=== PATIENT | male | born 1955 | race Native Hawaiian/Other Pacific Islander ===

== ENCOUNTER 2017-06-25 10:35 | Inpatient (IN) | payer OTHER ==
[2017-06-25 13:41] VITALS: BMI 22.3
--- NOTE | 2017-06-25 17:05 | HP ---
CIWA Score - CIWA Score Nausea/Vomitin-Mild Nausea/No Vomiting Muscle Tremors: 4-Moderate,w/Arms Extend Anxiety: 5 Agitation: 4-Moderately Restless Paroxysmal Sweats: 1-Minimal Palms Moist Orientation: 0-Oriented Tacttile Disturbances: 1-Very Mild Itch/Numbness Auditory Disturbances: 0-None Visual Disturbances: 0-None Headache: 3-Moderate CIWA-Ar Total Score: 19 Admission ROS S - HPI Chief Complaint: withdrawal sx Allergies/Adverse Reactions: Allergies Allergy/AdvReac Type Severity Reaction Status Date / Time No Known Drug Allergies Allergy Verified 06/25/17 14:04 pork Allergy Intermediate Vomiting Uncoded 06/25/17 14:04 History of Present Illness: 61 years old male with long history of xanax klonopin nicotine dependence has positive ppd cane for ambulation methadone maintenance 80 mg po daily and depression is admitted to detox Exam Limitations: No Limitations - Ebola screening Have you traveled outside of the country in the last 21 days: No Have you had contact with anyone from an Ebola affected area: No Have you been sick,other than usual withdrawal symptoms: No Do you have a fever: No - Review of Systems Constitutional: Loss of Appetite, Changes in sleep, Unintentional Wgt. Loss, Unexplained wgt Loss EENT: reports: Blurred Vision (eye glasses), Dental Problems (upper and lower) Respiratory: reports: SOB with Exertion Cardiac: reports: No Symptoms Reported GI: reports: Nausea, Poor Fluid Intake, Indigestion, Abdominal cramping : reports: No Symptoms Reported Musculoskeletal: reports: Back Pain (x 6+ months treated by pain management), Muscle Weakness (both legs) Integumentary: reports: No Symptoms Reported Endocrine: reports: No Symptoms Reported Hematology: reports: No Symptoms Reported Psychiatric: reports: Judgement Intact, Orientated x3, Anxious, Depressed Other Systems: Reviewed and Negative Patient History - Patient Medical History Hx Anemia: No Hx Asthma: No Hx Chronic Obstructive Pulmonary Disease (COPD): No Hx Cancer: No Hx Cardiac Disorders: No Hx Congestive Heart Failure: No Hx Hypertension: No Hx Hypercholesterolemia: No Hx Pacemaker: No HX Cerebrovascular Accident: No Hx Seizures: Yes (08/2016 xanax withdrawal related ) Hx Dementia: No Hx Diabetes: No Hx Gastrointestinal Disorders: No Hx Liver Disease: No Hx Genitourinary Disorders: No Hx Sexually Transmitted Disorders: No Hx Renal Disease (ESRD): No Hx Thyroid Disease: No Hx Human Immunodeficiency Virus (HIV): No Hx Hepatitis C: Yes Hx Depression: Yes Hx Suicide Attempt: No Hx Bipolar Disorder: No Hx Schizophrenia: No - Patient Surgical History Past Surgical History: Yes Hx Orthopedic Surgery: Yes (RT knee-1972/lower back sx-2014) Anesthesia Reaction: No - PPD History Previous Implant?: Yes (take home bottle) Documented Results: Positive w/o proof Implanted On Prior [facility] Admission?: No PPD to be Administered?: No - Smoking Cessation Smoking history: Current every day smoker Have you smoked in the past 12 months: Yes Aproximately how many cigarettes per day: 20 Cigars Per Day: 0 Hx Chewing Tobacco Use: No Initiated information on smoking cessation: Yes 'Breaking Loose' booklet given: 06/25/17 - Substance & Tx. History Hx Alcohol Use: No Hx Substance Use: Yes Substance Use Type: Cocaine, Tranquilizers Hx Substance Use Treatment: Yes (12/2016 [facility]) - Substances Abused Heroin Route: Injection Frequency: Daily Amount used: 10-12 bags Age of first use: 16 Date of Last Use: 06/25/17 Benzodiazepine (Klonopin) Route: Oral Frequency: Daily Amount used: 8 mg Age of first use: 59 Date of Last Use: 06/24/17 Alprazolam (Xanax) Route: Oral Frequency: Daily Amount used: 4 mg Age of first use: 60 Date of Last Use: 06/24/17 Cocaine Route: Injection Frequency: Daily Amount used: $40-50 Age of first use: 14 Date of Last Use: 06/25/17 Family Disease History - Family Disease History Family Disease History: Heart Disease: Mother (), Sister, Other: Father (/fell), Mother, Brother (/killed) Admission Physical Exam [facility] - Vital Signs Vital Signs: Vital Signs - 24 hr 06/25/17 13:33 Temperature 96.5 F L Pulse Rate 64 Respiratory 20 Rate Blood Pressure 160/71 - Physical General Appearance: Yes: Appropriately Dressed, Moderate Distress, Thin, Tremorous, Irritable, Sweating, Anxious HEENTM: Yes: Hearing grossly Normal, Normal ENT Inspection, Normocephalic, Normal Voice Respiratory: Yes: Chest Non-Tender, Lungs Clear, Normal Breath Sounds, No Respiratory Distress, No Accessory Muscle Use Neck: Yes: Supple, Trachea in good position Breast: Yes: Breasts Symetrical Cardiology: Yes: Regular Rhythm, S1, S2, Bradycardia Abdominal: Yes: Normal Bowel Sounds, Non Tender, Soft Genitourinary: Yes: Within Normal Limits Back: Yes: Normal Inspection Musculoskeletal: Yes: full range of Motion, Gait Steady (cane), Back pain, Joint swelling (lumbar x "years"), Muscle weakness (both legs) Extremities: Yes: Non-Tender, Tremors Neurological: Yes: Fully Oriented, Alert, Normal Response, Depressed Affect Integumentary: Yes: Warm, Track [place] (arms + legs) Lymphatic: Yes: Within Normal Limits - Diagnostic (1) Sedative, hypnotic or anxiolytic dependence with withdrawal, uncomplicated Current Visit: Yes Status: Acute (2) Nicotine dependence Current Visit: Yes Status: Acute Qualifiers: Nicotine product type: cigarettes Substance use status: in withdrawal Qualified Code(s): F17.213 - Nicotine dependence, cigarettes, with withdrawal (3) Use of cane as ambulatory aid Current Visit: Yes Status: Chronic (4) Positive PPD, treated Current Visit: Yes Status: Resolved (5) Methadone maintenance therapy patient Current Visit: Yes Status: Chronic Comment: 80 mg verified last dose (6) Weight loss Current Visit: Yes Status: Acute (7) GERD (gastroesophageal reflux disease) Current Visit: Yes Status: Chronic Qualifiers: Esophagitis presence: without esophagitis Qualified Code(s): K21.9 - Gastro -esophageal reflux disease without esophagitis (8) Hepatitis C Current Visit: Yes Status: Chronic Qualifiers: Viral hepatitis chronicity: carrier Qualified Code(s): B18.2 - Chronic viral hepatitis C Comment: patient agrees to discuss treatment with primary care dr. ocampo Cleared for Admission [facility] - Detox or Rehab [facility] Level of Care: Medically Managed Detox Regimen/Protocol: Valium [facility] Breath Alcohol Content Breath Alcohol Content: 0 Urine Drug Screen - Results Drug Screen Negative: No Urine Drug Screen Results: FREDERIC-Cocaine, OPI-Opiates, BZO-Benzodiazepines, MTD- Methadone
[2017-06-25] MEDS ORDERED: MENTHOL/PHENOL 1 EACH UD MM PRN (17:13)
[2017-06-25] MEDS ORDERED: MAGNESIUM CITRATE 300 ML BOTTLE PO PRN (17:13)
[2017-06-25] MEDS ORDERED: NICOTINE POLACRILEX 4 MG GUM BC PRN (17:13)
[2017-06-25] MEDS ORDERED: P-EPHED 60MG/TRIPROLIDI 2.5MG TABLET PO PRN (17:13)
[2017-06-25] MEDS ORDERED: MAG HYDROX/AL HYDROX/SIMETH 30 ML UNIT-DOSE CUP PO PRN (17:13)
[2017-06-25] MEDS ORDERED: MAGNESIUM HYDROX 2400MG/30ML ORAL SUSPENSION 30 ML CUP PO PRN (17:13)
[2017-06-25] MEDS ORDERED: ACETAMINOPHEN 325 MG TABLET (FP) PO PRN (17:13)
[2017-06-25] MEDS ORDERED: guaiFENesin/D-METHORPHAN HB 10 ML UNIT-DOSE CUPS PO PRN (17:13)
[2017-06-25] MEDS ORDERED: diazePAM 5 MG TABLET PO ONE (18:00)
[2017-06-25 20:42] LABS: URINE APPEARANCE CLEAR; URINE BILIRUBIN NEGATIVE (NEGATIVE); URINE BLOOD NEGATIVE (NEGATIVE); URINE COLOR YELLOW; URINE GLUCOSE (UA) NEGATIVE (NEGATIVE); URINE KETONE NEGATIVE (NEGATIVE); URINE LEUK ESTERASE NEGATIVE (NEGATIVE); URINE NITRITE NEGATIVE (NEGATIVE); URINE PROTEIN NEGATIVE (NEGATIVE); URINE UROBILINOGEN NEGATIVE mg/dL (0.2-1.0)
[2017-06-25] MEDS: THIAMINE HCL 100 MG TABLET (FP) PO SCH (22:15)
[2017-06-25] MEDS: RANITIDINE HCL 150 MG TABLET (FP) PO SCH (22:15)
[2017-06-25] MEDS: diazePAM 5 MG TABLET PO SCH (22:15)
[2017-06-25] MEDS: NAPROXEN 500 MG TABLET (FP) PO SCH (22:15)
[2017-06-26] MEDS: METHADONE HCL 40 MG DISPERSABLE TABLET PO SCH (05:44)
[2017-06-26] MEDS: diazePAM 5 MG TABLET PO SCH ×3 (05:45→22:12)
[2017-06-26] MEDS: diazePAM 5 MG TABLET PO PRN ×3 (09:02→19:03)
[2017-06-26 09:48] LABS: HEMATOCRIT 35.5 % (35.4-49); HEMOGLOBIN 11.1 GM/dL (11.7-16.9); MCH 25.2 pg (25.7-33.7); MCHC 31.3 g/dl (32.0-35.9); MEAN CELL VOLUME 80.5 fl (80-96); MEAN PLT VOLUME 9.8 fl (7.5-11.1); PLATELET COUNT 145 K/MM3 (134-434); RBC 4.41 M/mm3 (4.00-5.60); RDW 15.4 % (11.9-15.9); WHITE BLOOD COUNT 5.9 K/mm3 (4.0-10.0)
[2017-06-26 10:08] LABS: ALBUMIN 3.5 g/dl (3.4-5.0); ANION GAP 7 (8-16); BLOOD UREA NITROGEN 22 mg/dL (7-18); CALCIUM 8.1 mg/dL (8.5-10.1); CHLORIDE 108 mmol/L (98-107); CO2 28 mmol/L (21-32); CREATININE 1.4 mg/dL (0.7-1.3); GLUCOSE,RANDOM 100 mg/dL (74-106); SGOT/AST 30 U/L (15-37); SGPT/ALT 26 U/L (12-78); SODIUM 143 mmol/L (136-145)
[2017-06-26 10:11] LABS: ALK PHOS 60 U/L (45-117); BILIRUBIN,TOTAL 0.4 mg/dL (0.2-1.0)
[2017-06-26] MEDS: NICOTINE 21 MG/24 HOURS TOPICAL PATCH TD SCH (10:17)
[2017-06-26] MEDS: PRENATAL VITAMINS W/ FOLIC ACID TABLET (FP) PO SCH (10:18)
[2017-06-26] MEDS: NAPROXEN 500 MG TABLET (FP) PO SCH ×2 (10:18→22:40)
[2017-06-26] MEDS: RANITIDINE HCL 150 MG TABLET (FP) PO SCH ×2 (10:18→22:40)
--- NOTE | 2017-06-26 13:03 | PN ---
[facility] CIWA - CIWA Score Nausea/Vomitin-No Nausea/No Vomiting Muscle Tremors: 5 Anxiety: 5 Agitation: 4-Moderately Restless Paroxysmal Sweats: 1-Minimal Palms Moist Orientation: 0-Oriented Tacttile Disturbances: 3-Moderate Itch/Numb/Burn Auditory Disturbances: 0-None Visual Disturbances: 0-None Headache: 0-None Present CIWA-Ar Total Score: 18 BHS Progress Note (SOAP) Subjective: PT C/O ANXIETY, HOT/COLD CHILLS, SWEATS, GOOSE BUMPS, NAUSEA,DIARRHEA, INTERMITTENT SLEEP. Objective: 06/26/17 13:02 Vital Signs Temperature 96.2 F L 06/26/17 09:39 Pulse Rate 71 06/26/17 09:39 Respiratory Rate 18 06/26/17 09:39 Blood Pressure 138/76 06/26/17 09:39 O2 Sat by Pulse Oximetry (%) Laboratory Last Values WBC 5.9 K/mm3 (4.0-10.0) 06/26/17 05:45 RBC 4.41 M/mm3 (4.00-5.60) 06/26/17 05:45 Hgb 11.1 GM/dL (11.7-16.9) L 06/26/17 05:45 Hct 35.5 % (35.4-49) 06/26/17 05:45 MCV 80.5 fl (80-96) 06/26/17 05:45 MCH 25.2 pg (25.7-33.7) L 06/26/17 05:45 MCHC 31.3 g/dl (32.0-35.9) L 06/26/17 05:45 RDW 15.4 % (11.9-15.9) 06/26/17 05:45 Plt Count 145 K/MM3 (134-434) 06/26/17 05:45 MPV 9.8 fl (7.5-11.1) 06/26/17 05:45 Sodium 143 mmol/L (136-145) 06/26/17 05:45 Potassium 4.0 mmol/L (3.5-5.1) 06/26/17 05:45 Chloride 108 mmol/L (98-107) H 06/26/17 05:45 Carbon Dioxide 28 mmol/L (21-32) 06/26/17 05:45 Anion Gap 7 (8-16) L 06/26/17 05:45 BUN 22 mg/dL (7-18) H 06/26/17 05:45 Creatinine 1.4 mg/dL (0.7-1.3) H 06/26/17 05:45 Creat Clearance w eGFR 51.18 (>60) 06/26/17 05:45 Random Glucose 100 mg/dL (74-106) 06/26/17 05:45 Calcium 8.1 mg/dL (8.5-10.1) L 06/26/17 05:45 Total Bilirubin 0.4 mg/dL (0.2-1.0) 06/26/17 05:45 AST 30 U/L (15-37) 06/26/17 05:45 ALT 26 U/L (12-78) 06/26/17 05:45 Alkaline Phosphatase 60 U/L (45-117) 06/26/17 05:45 Total Protein 7.0 g/dl (6.4-8.2) 06/26/17 05:45 Albumin 3.5 g/dl (3.4-5.0) 06/26/17 05:45 Urine Color Yellow 06/25/17 19:00 Urine Appearance Clear 06/25/17 19:00 Urine pH 5.0 (5.0-8.0) 06/25/17 19:00 Ur Specific [place] 1.025 (1.001-1.035) 06/25/17 19:00 Urine Protein Negative (NEGATIVE) 06/25/17 19:00 Urine Glucose (UA) Negative (NEGATIVE) 06/25/17 19:00 Urine Ketones Negative (NEGATIVE) 06/25/17 19:00 Urine Blood Negative (NEGATIVE) 06/25/17 19:00 Urine Nitrite Negative (NEGATIVE) 06/25/17 19:00 Urine Bilirubin Negative (NEGATIVE) 06/25/17 19:00 Urine Urobilinogen Negative mg/dL (0.2-1.0) 06/25/17 19:00 Ur Leukocyte Esterase Negative (NEGATIVE) 06/25/17 19:00 RPR Titer Nonreactive (NONREACTIVE) 06/26/17 05:45 HIV 1&2 Antibody Screen Negative 06/25/17 05:45 HIV P24 Antigen Negative 06/25/17 05:45 Assessment: 06/26/17 13:03 WITHDRAWAL SX Plan: CONTINUE DETOX
--- NOTE | 2017-06-26 15:15 | EKG ---
Test Reason : Blood Pressure : / mmHG Vent. Rate : 064 BPM Atrial Rate : 064 BPM P-R Int : 152 ms QRS Dur : 086 ms QT Int : 408 ms P-R-T Axes : 070 062 060 degrees QTc Int : 420 ms NORMAL SINUS RHYTHM POSSIBLE LEFT ATRIAL ENLARGEMENT BORDERLINE ECG Confirmed by MD ESTEBAN, BEATA ([id number]) on 06/26/2017 3:14:53 PM Referred By: Confirmed By:BEATA ORELLANA MD
--- NOTE | 2017-06-26 15:16 | EKG ---
Test Reason : Blood Pressure : / mmHG Vent. Rate : 054 BPM Atrial Rate : 054 BPM P-R Int : 164 ms QRS Dur : 086 ms QT Int : 438 ms P-R-T Axes : 074 079 069 degrees QTc Int : 415 ms SINUS BRADYCARDIA WITH SINUS ARRHYTHMIA OTHERWISE NORMAL ECG Confirmed by MD ESTEBAN, BEATA ([id number]) on 06/26/2017 3:16:08 PM Referred By: Confirmed By:BEATA ORELLANA MD
--- NOTE | 2017-06-26 15:33 | CONSULT ---
[facility] Psychiatric Consult - Data Date of interview: 06/26/17 Admission source: [facility] Identifying data: Pt. is a 61 year old male, , father of five, and is on disability. This is patient's first admission to [facility]. Pt. admitted to for cocaine, benzodiazepine, and opiate withdrawal. Substance Abuse History: Following information confirmed with Mr. Yung: - Smoking Cessation. Smoking history: Current every day smoker. Have you smoked in the past 12 months: Yes. Aproximately how many cigarettes per day: 20. Cigars Per Day: 0. Hx Chewing Tobacco Use: No. Initiated information on smoking cessation: Yes. 'Breaking Loose' booklet given: 06/25/17. - Substance & Tx. History. Hx Alcohol Use: No. Hx Substance Use: Yes. Substance Use Type : Cocaine, Tranquilizers. Hx Substance Use Treatment: Yes (12/2016 [facility]). - Substances Abused. Heroin. Route: Injection. Frequency: Daily. Amount used: 10-12 bags. Age of first use: 16. Date of Last Use: 06/25/17. Benzodiazepine (Klonopin). Route: Oral. Frequency: Daily. Amount used: 8 mg. Age of first use: 59. Date of Last Use: 06/24/17. Alprazolam (Xanax). Route: Oral. Frequency: Daily. Amount used: 4 mg. Age of first use: 60. Date of Last Use: 06/24/17. Cocaine. Route: Injection. Frequency: Daily. Amount used: $40-50. Age of first use: 14. Date of Last Use: 06/25/17 Medical History: Seizures (last seizure was on 08/2016) and Hep C Psychiatric History: Pt. denies h/o psychiatric hospitalizations and suicide attempts. Pt reports h/o OPC 2 years ago, was diagnosed with PTSD and was prescribed zoloft. Pt. no longer has an OPC. States his current PCP prescribes him trazodone 50mg qhs but no longer has additional medications. Last took trazodone 2 weeks ago. Pt. requesting to restart trazodone 50mg qhs. Physical/Sexual Abuse/Trauma History: Denies. Mental Status Exam - Mental Status Exam Alert and Oriented to: Time, Place, Person Cognitive Function: Good Patient Appearance: Well Groomed Mood: Hopeful Affect: Normal Range Patient Behavior: Cooperative Speech Pattern: Appropriate Voice Loudness: Normal Thought Process: Goal Oriented Thought Disorder: Not Present Hallucinations: Denies Suicidal Ideation: Denies Homicidal Ideation: Denies Insight/Judgement: Poor Sleep: Poorly Appetite: Poor Muscle strength/Tone: Mild Hypertonicity Gait/Station: Other (Pt. walks with a cane.) Psychiatric Findings - Problem List ([place] 1, 2,3) (1) Sedative, hypnotic or anxiolytic dependence with withdrawal, uncomplicated Current Visit: Yes Status: Acute (2) Opiate dependence Current Visit: Yes Status: Acute (3) Cocaine dependence Current Visit: Yes Status: Acute (4) Insomnia Current Visit: Yes Status: Acute (5) Nicotine dependence Current Visit: Yes Status: Chronic Qualifiers: Nicotine product type: cigarettes Substance use status: in withdrawal Qualified Code(s): F17.213 - Nicotine dependence, cigarettes, with withdrawal - Initial Treatment Plan Initial Treatment Plan: Psychoeducation provided. Detoxification in progress. Trazodone 50mg qhs ordered for insomnia. Benefits and side effects (priapism) discussed. Verbal consent given. Will continue to monitor.
[2017-06-26] MEDS: LOPERAMIDE HCL 2 MG CAPSULE PO PRN (19:38)
[2017-06-26] MEDS: THIAMINE HCL 100 MG TABLET (FP) PO SCH (22:11)
[2017-06-26] MEDS: traZODone HCL 50 MG TABLET (FP) PO SCH (22:12)
[2017-06-27] MEDS: METHADONE HCL 40 MG DISPERSABLE TABLET PO SCH (05:39)
[2017-06-27] MEDS: NICOTINE 21 MG/24 HOURS TOPICAL PATCH TD SCH (10:09)
[2017-06-27] MEDS: RANITIDINE HCL 150 MG TABLET (FP) PO SCH ×2 (10:09→22:32)
[2017-06-27] MEDS: NAPROXEN 500 MG TABLET (FP) PO SCH ×2 (10:09→22:32)
[2017-06-27] MEDS: diazePAM 5 MG TABLET PO SCH ×2 (10:09→22:32)
[2017-06-27] MEDS: PRENATAL VITAMINS W/ FOLIC ACID TABLET (FP) PO SCH (10:09)
[2017-06-27] MEDS: TOLNAFTATE 1% CREAM 15 GM TUBE TP SCH ×2 (14:09→22:35)
--- NOTE | 2017-06-27 15:06 | PN ---
S CIWA - CIWA Score Nausea/Vomitin Muscle Tremors: None Anxiety: 3 Agitation: 3 Paroxysmal Sweats: 3 Orientation: 2-Disoriented Date<2 days Tacttile Disturbances: 2-Mild Itch/Numbness/Burn Auditory Disturbances: 0-None Visual Disturbances: 0-None Headache: 0-None Present CIWA-Ar Total Score: 18 BHS Progress Note (SOAP) Subjective: Sweating, Chills, Vomiting, Diarrhea, Body Aches. Objective: PT. A & O X (UNCERTAIN ABOUT CURRENT DAY / DATE), OBSERVED AMBULATING ON UNIT WITH ASSISTANCE OF A CANE. NO ACUTE DISTRESS. 06/27/17 15:03 Vital Signs Temperature 98.4 F 06/27/17 13:17 Pulse Rate 83 06/27/17 13:17 Respiratory Rate 16 06/27/17 13:17 Blood Pressure 98/65 06/27/17 13:17 O2 Sat by Pulse Oximetry (%) Laboratory Tests 06/25/17 06/25/17 06/26/17 05:45 19:00 05:45 WBC 5.9 RBC 4.41 Hgb 11.1 L Hct 35.5 MCV 80.5 MCH 25.2 L MCHC 31.3 L RDW 15.4 Plt Count 145 MPV 9.8 Sodium Potassium Chloride Carbon Dioxide Anion Gap BUN Creatinine Creat Clearance w eGFR Random Glucose Calcium Total Bilirubin AST ALT Alkaline Phosphatase Total Protein Albumin Urine Color Yellow Urine Appearance Clear Urine pH 5.0 Ur Specific [place] 1.025 Urine Protein Negative Urine Glucose (UA) Negative Urine Ketones Negative Urine Blood Negative Urine Nitrite Negative Urine Bilirubin Negative Urine Urobilinogen Negative Ur Leukocyte Esterase Negative RPR Titer HIV 1&2 Antibody Screen Negative HIV P24 Antigen Negative 06/26/17 06/26/17 05:45 05:45 WBC RBC Hgb Hct MCV MCH MCHC RDW Plt Count MPV Sodium 143 Potassium 4.0 Chloride 108 H Carbon Dioxide 28 Anion Gap 7 L BUN 22 H Creatinine 1.4 H Creat Clearance w eGFR 51.18 Random Glucose 100 Calcium 8.1 L Total Bilirubin 0.4 AST 30 ALT 26 Alkaline Phosphatase 60 Total Protein 7.0 Albumin 3.5 Urine Color Urine Appearance Urine pH Ur Specific [place] Urine Protein Urine Glucose (UA) Urine Ketones Urine Blood Urine Nitrite Urine Bilirubin Urine Urobilinogen Ur Leukocyte Esterase RPR Titer Nonreactive HIV 1&2 Antibody Screen HIV P24 Antigen LABS NOTED. Assessment: 06/27/17 15:03 WITHDRAWAL SYMPTOMS. Plan: CONTINUE DETOX. PRN IMMODIUM FOR DIARRHEA. INCREASE DAILY PO FLUID INTAKE. D/C MAGNESIUM-CONTAINING MEDS. BMP TOMORROW AM FOR ABNORMAL ADMISSION RENAL LAB VALUES.
[2017-06-27] MEDS: THIAMINE HCL 100 MG TABLET (FP) PO SCH (22:32)
[2017-06-27] MEDS: traZODone HCL 50 MG TABLET (FP) PO SCH (22:32)
[2017-06-28] MEDS: METHADONE HCL 40 MG DISPERSABLE TABLET PO SCH (05:16)
[2017-06-28] MEDS: PRENATAL VITAMINS W/ FOLIC ACID TABLET (FP) PO SCH (10:18)
[2017-06-28] MEDS: NAPROXEN 500 MG TABLET (FP) PO SCH ×2 (10:18→21:35)
[2017-06-28] MEDS: NICOTINE 21 MG/24 HOURS TOPICAL PATCH TD SCH (10:18)
[2017-06-28] MEDS: TOLNAFTATE 1% CREAM 15 GM TUBE TP SCH ×2 (10:18→21:36)
[2017-06-28] MEDS: diazePAM 5 MG TABLET PO SCH ×2 (10:18→21:35)
[2017-06-28 10:37] LABS: ANION GAP 6 (8-16); BLOOD UREA NITROGEN 23 mg/dL (7-18); CHLORIDE 110 mmol/L (98-107); CO2 28 mmol/L (21-32); CREATININE 1.2 mg/dL (0.7-1.3); GLUCOSE,RANDOM 84 mg/dL (74-106); SODIUM 144 mmol/L (136-145)
[2017-06-28] MEDS: RANITIDINE HCL 150 MG TABLET (FP) PO SCH ×2 (10:52→21:35)
--- NOTE | 2017-06-28 14:17 | PN ---
S Progress Note (SOAP) Subjective: Interrupted sleep, diarrhea, back pain Objective: 06/28/17 14:13 Last Vital Signs Temp Pulse Resp BP Pulse Ox 95.9 F L 77 18 95/57 06/28/17 13:10 06/28/17 13:10 06/28/17 13:10 06/28/17 13:10 b/p noted 95/57: hypotension (asymptomatic), encouraged to drink lots of water ( water pitcher ordered) Laboratory Tests 06/25/17 06/25/17 06/26/17 05:45 19:00 05:45 WBC 5.9 RBC 4.41 Hgb 11.1 L Hct 35.5 MCV 80.5 MCH 25.2 L MCHC 31.3 L RDW 15.4 Plt Count 145 MPV 9.8 Sodium Potassium Chloride Carbon Dioxide Anion Gap BUN Creatinine Creat Clearance w eGFR Random Glucose Calcium Total Bilirubin AST ALT Alkaline Phosphatase Total Protein Albumin Urine Color Yellow Urine Appearance Clear Urine pH 5.0 Ur Specific [place] 1.025 Urine Protein Negative Urine Glucose (UA) Negative Urine Ketones Negative Urine Blood Negative Urine Nitrite Negative Urine Bilirubin Negative Urine Urobilinogen Negative Ur Leukocyte Esterase Negative RPR Titer HIV 1&2 Antibody Screen Negative HIV P24 Antigen Negative 06/26/17 06/26/17 06/28/17 05:45 05:45 07:40 WBC RBC Hgb Hct MCV MCH MCHC RDW Plt Count MPV Sodium 143 144 Potassium 4.0 4.0 Chloride 108 H 110 H Carbon Dioxide 28 28 Anion Gap 7 L 6 L BUN 22 H 23 H Creatinine 1.4 H 1.2 Creat Clearance w eGFR 51.18 Random Glucose 100 84 Calcium 8.1 L 8.0 L Total Bilirubin 0.4 AST 30 ALT 26 Alkaline Phosphatase 60 Total Protein 7.0 Albumin 3.5 Urine Color Urine Appearance Urine pH Ur Specific [place] Urine Protein Urine Glucose (UA) Urine Ketones Urine Blood Urine Nitrite Urine Bilirubin Urine Urobilinogen Ur Leukocyte Esterase RPR Titer Nonreactive HIV 1&2 Antibody Screen HIV P24 Antigen Labs noted Assessment: 06/28/17 14:15 Withdrawal symptoms Noted with hypotension Plan: Continue detox Hypotension: asymptomatic, encouraged to drink lots of water (water pitcher ordered)
[2017-06-28] MEDS: LOPERAMIDE HCL 2 MG CAPSULE PO PRN (17:26)
[2017-06-28] MEDS: traZODone HCL 50 MG TABLET (FP) PO SCH (21:35)
[2017-06-28] MEDS: THIAMINE HCL 100 MG TABLET (FP) PO SCH (21:35)
[2017-06-29] MEDS: METHADONE HCL 40 MG DISPERSABLE TABLET PO SCH (05:17)
[2017-06-29] MEDS ORDERED: diazePAM 5 MG TABLET PO SCH (10:00)
[2017-06-29] MEDS: RANITIDINE HCL 150 MG TABLET (FP) PO SCH (10:29)
[2017-06-29] MEDS: NAPROXEN 500 MG TABLET (FP) PO SCH (10:29)
[2017-06-29] MEDS: PRENATAL VITAMINS W/ FOLIC ACID TABLET (FP) PO SCH (10:29)
[2017-06-29] MEDS: TOLNAFTATE 1% CREAM 15 GM TUBE TP SCH (10:30)
[2017-06-29] MEDS: NICOTINE 21 MG/24 HOURS TOPICAL PATCH TD SCH (10:31)
[2017-06-29 13:36] VITALS: BP 103/54; PULSE 70; TEMP 96.5
--- NOTE | 2017-06-29 16:29 | DS ---
[facility] Detox Discharge Summary Admission Date: 06/25/17 Discharge Date: 06/29/17 - History Present History: Opioid Dependence, Sedative Dependence, MMTP Additional Comments: PATIENT ADVISED TO CONSIDER LOCAL 12-STEP / NA OUTPATIENT SUPPORT GROUPS FOR AFTERCARE. PATIENT WAS DISCHARGED FROM DETOX UNIT IN STABLE MEDICAL CONDITION. Pertinent Past History: History of Seizure (Drug-Related), Nicotine Dependence, Depression, Hep C, History of Positive PPD (Treated), Use of Cane as Ambulatory Aid, MMTP, GERD. - Physical Exam Results Vital Signs: Vital Signs Temperature 96.5 F L 06/29/17 13:35 Pulse Rate 70 06/29/17 13:35 Respiratory Rate 20 06/29/17 13:35 Blood Pressure 103/54 06/29/17 13:35 O2 Sat by Pulse Oximetry (%) Pertinent Admission Physical Exam Findings: WITHDRAWAL SYMPTOMS. Laboratory Tests 06/25/17 06/25/17 06/26/17 05:45 19:00 05:45 WBC 5.9 RBC 4.41 Hgb 11.1 L Hct 35.5 MCV 80.5 MCH 25.2 L MCHC 31.3 L RDW 15.4 Plt Count 145 MPV 9.8 Sodium Potassium Chloride Carbon Dioxide Anion Gap BUN Creatinine Creat Clearance w eGFR Random Glucose Calcium Total Bilirubin AST ALT Alkaline Phosphatase Total Protein Albumin Urine Color Yellow Urine Appearance Clear Urine pH 5.0 Ur Specific [place] 1.025 Urine Protein Negative Urine Glucose (UA) Negative Urine Ketones Negative Urine Blood Negative Urine Nitrite Negative Urine Bilirubin Negative Urine Urobilinogen Negative Ur Leukocyte Esterase Negative RPR Titer HIV 1&2 Antibody Screen Negative HIV P24 Antigen Negative 06/26/17 06/26/17 06/28/17 05:45 05:45 07:40 WBC RBC Hgb Hct MCV MCH MCHC RDW Plt Count MPV Sodium 143 144 Potassium 4.0 4.0 Chloride 108 H 110 H Carbon Dioxide 28 28 Anion Gap 7 L 6 L BUN 22 H 23 H Creatinine 1.4 H 1.2 Creat Clearance w eGFR 51.18 Random Glucose 100 84 Calcium 8.1 L 8.0 L Total Bilirubin 0.4 AST 30 ALT 26 Alkaline Phosphatase 60 Total Protein 7.0 Albumin 3.5 Urine Color Urine Appearance Urine pH Ur Specific [place] Urine Protein Urine Glucose (UA) Urine Ketones Urine Blood Urine Nitrite Urine Bilirubin Urine Urobilinogen Ur Leukocyte Esterase RPR Titer Nonreactive HIV 1&2 Antibody Screen HIV P24 Antigen LABS NOTED. - Treatment Hospital Course: Detox Protocol Followed, Detoxed Safely, Responded well, Discharged Condition Good Patient has Accepted a Rehab Referral to: PT ADVISED TO CONSIDER LOCAL 12-STEP/ NA SUPPORT GROUPS FOR AFTERCARE. - Medication Discharge Medications: Ambulatory Orders Trazodone HCl [Desyrel -] 50 mg PO HS 06/25/17 - Diagnosis (1) Sedative, hypnotic or anxiolytic dependence with withdrawal, uncomplicated Status: Acute (2) GERD (gastroesophageal reflux disease) Status: Chronic Qualifiers: Esophagitis presence: without esophagitis Qualified Code(s): K21.9 - Gastro -esophageal reflux disease without esophagitis (3) Hepatitis C Status: Chronic Qualifiers: Viral hepatitis chronicity: carrier Qualified Code(s): B18.2 - Chronic viral hepatitis C (4) Methadone maintenance therapy patient Status: Chronic (5) Nicotine dependence Status: Chronic Qualifiers: Nicotine product type: cigarettes Substance use status: in withdrawal Qualified Code(s): F17.213 - Nicotine dependence, cigarettes, with withdrawal (6) Use of cane as ambulatory aid Status: Chronic (7) Weight loss Status: Acute (8) Positive PPD, treated Status: Resolved (9) Cocaine dependence Status: Acute Qualifiers: Substance use status: uncomplicated Qualified Code(s): F14.20 - Cocaine dependence, uncomplicated (10) Insomnia Status: Acute Qualifiers: Insomnia type: unspecified Qualified Code(s): G47.00 - Insomnia, unspecified (11) Opiate dependence Status: Chronic Qualifiers: Substance use status: uncomplicated Qualified Code(s): F11.20 - Opioid dependence, uncomplicated - AMA Did Patient Leave Against Medical Advice: No
== END 2017-06-29 14:30 | disposition home or self-care (01) | DRG 773 ==
LOC: YASAS 10:35 → Y3N 14:50
PROVIDERS: ADMIT Internal Medicine; ATTEND Internal Medicine
PROC: HZ2ZZZZ Detoxification Services for Substance Abuse Treatment (ICD-10-PCS; principal; 2017-06-25)
DX: F13.230 Sedative, hypnotic or anxiolytic dependence with withdrawal, uncomplicated (principal); F11.20 Opioid dependence, uncomplicated; F14.20 Cocaine dependence, uncomplicated; F17.213 Nicotine dependence, cigarettes, with withdrawal; F32.9 Major depressive disorder, single episode, unspecified; I95.9 Hypotension, unspecified; K21.9 Gastro-esophageal reflux disease without esophagitis; B18.2 Chronic viral hepatitis C; R00.1 Bradycardia, unspecified; G47.00 Insomnia, unspecified; R76.11 Nonspecific reaction to tuberculin skin test without active tuberculosis; R26.2 Difficulty in walking, not elsewhere classified; Z99.89 Dependence on other enabling machines and devices; Z86.69 Personal history of other diseases of the nervous system and sense organs; Z87.898 Personal history of other specified conditions; Z91.018 Allergy to other foods
CPT/HCPCS: 36415; 71046-TC; 80048; 80053; 81003; 85027; 86593; 87389; 93005; 93010

== ENCOUNTER 2018-06-26 12:16 | Inpatient (IN) | payer OTHER ==
[2018-06-26 12:23] VITALS: BMI 22.2
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
[2018-06-26] MEDS ORDERED: guaiFENesin/D-METHORPHAN HB 10 ML UNIT-DOSE CUPS PO PRN (13:23)
[2018-06-26] MEDS ORDERED: LOPERAMIDE HCL 2 MG CAPSULE PO PRN (13:23)
[2018-06-26] MEDS ORDERED: MAGNESIUM HYDROX 2400MG/30ML ORAL SUSPENSION 30 ML CUP PO PRN (13:23)
[2018-06-26] MEDS ORDERED: MAG HYDROX/AL HYDROX/SIMETH 30 ML UNIT-DOSE CUP PO PRN (13:23)
[2018-06-26] MEDS ORDERED: P-EPHED 60MG/TRIPROLIDI 2.5MG TABLET PO PRN (13:23)
[2018-06-26] MEDS ORDERED: MENTHOL/PHENOL 1 EACH UD MM PRN (13:23)
[2018-06-26] MEDS ORDERED: MAGNESIUM CITRATE 300 ML BOTTLE PO PRN (13:23)
[2018-06-26] MEDS ORDERED: ACETAMINOPHEN 325 MG TABLET (FP) PO PRN (13:23)
[2018-06-26] MEDS ORDERED: diazePAM 5 MG TABLET PO ONE (14:45)
[2018-06-26] MEDS: NICOTINE 21 MG/24 HOURS TOPICAL PATCH TD SCH (15:57)
[2018-06-26] MEDS: diazePAM 5 MG TABLET PO PRN (20:08)
[2018-06-26 20:58] LABS: URINE APPEARANCE TURBID; URINE BILIRUBIN NEGATIVE (<2.0 mg/dL); URINE COLOR YELLOW; URINE GLUCOSE (UA) NEGATIVE (NEGATIVE); URINE KETONE NEGATIVE (NEGATIVE); URINE LEUK ESTERASE NEGATIVE (NEGATIVE); URINE NITRITE NEGATIVE (NEGATIVE); URINE PROTEIN 1+ (NEGATIVE); URINE UROBILINOGEN NEGATIVE mg/dL (0.2-1.0)
[2018-06-26 21:49] LABS: URINE BACTERIA MODERATE /hpf (NONE SEEN); URINE MUCUS RARE
[2018-06-26] MEDS: THIAMINE HCL 100 MG TABLET (FP) PO SCH (22:15)
[2018-06-26] MEDS: diazePAM 5 MG TABLET PO SCH (22:16)
[2018-06-26] MEDS: MELATONIN 5 MG TABLETS PO PRN (22:17)
[2018-06-27] MEDS: diazePAM 5 MG TABLET PO SCH ×3 (06:07→22:07)
[2018-06-27] MEDS ORDERED: METHADONE 120 MG, METHADONE 10 MG PO ONE (10:00)
[2018-06-27] MEDS ORDERED: METHADONE HCL 10 MG TABLET PO ONE (10:00)
[2018-06-27] MEDS ORDERED: METHADONE HCL 10 MG TABLET ONE (10:06)
[2018-06-27] MEDS ORDERED: METHADONE HCL 40 MG DISPERSABLE TABLET ONE (10:06)
[2018-06-27] MEDS: diazePAM 5 MG TABLET PO PRN ×3 (10:09→18:23)
[2018-06-27] MEDS: PRENATAL VITAMINS W/ FOLIC ACID TABLET (FP) PO SCH (10:09)
[2018-06-27] MEDS: NICOTINE 21 MG/24 HOURS TOPICAL PATCH TD SCH (10:10)
[2018-06-27 11:14] LABS: ALBUMIN 2.9 g/dl (3.4-5.0); ALK PHOS 63 U/L (45-117); ANION GAP 6 MMOL/L (8-16); BILIRUBIN,TOTAL 0.3 mg/dL (0.2-1); BLOOD UREA NITROGEN 24 mg/dL (7-18); CALCIUM 7.8 mg/dL (8.5-10.1); CHLORIDE 107 mmol/L (98-107); CO2 31 mmol/L (21-32); CREATININE 1.1 mg/dL (0.55-1.3); GLUCOSE,RANDOM 84 mg/dL (74-106); POTASSIUM 3.7 mmol/L (3.5-5.1); SGOT/AST 20 U/L (15-37); SGPT/ALT 63 U/L (13-61); SODIUM 143 mmol/L (136-145); TOT PROT 5.8 g/dl (6.4-8.2)
[2018-06-27 11:27] LABS: HEMATOCRIT 31.8 % (35.4-49); HEMOGLOBIN 10.5 GM/dL (11.7-16.9); MCH 26.2 pg (25.7-33.7); MEAN CELL VOLUME 79.4 fl (80-96); MEAN PLT VOLUME 9.4 fl (7.5-11.1); PLATELET COUNT 161 K/MM3 (134-434); RBC 4.01 M/mm3 (4.00-5.60); RDW 15.3 % (11.9-15.9); WHITE BLOOD COUNT 4.7 K/mm3 (4.0-10.0)
--- NOTE | 2018-06-27 15:54 | PN ---
[facility] CIWA - CIWA Score Nausea/Vomitin-Mild Nausea/No Vomiting Muscle Tremors: 3 Anxiety: 1-Mildly Anxious Agitation: 2 Paroxysmal Sweats: 1-Minimal Palms Moist Orientation: 1-Uncertain about Date Tacttile Disturbances: 0-None Auditory Disturbances: 0-None Visual Disturbances: 0-None Headache: 2-Mild CIWA-Ar Total Score: 11 [facility] Progress Note (SOAP) Subjective: received methadone 130 mg today as per take home bottle indicated tremor sweating restlessness diarrhea Objective: 06/27/18 15:54 Vital Signs Temperature 98.4 F 06/27/18 14:12 Pulse Rate 84 06/27/18 14:12 Respiratory Rate 18 06/27/18 14:12 Blood Pressure 151/80 06/27/18 14:12 O2 Sat by Pulse Oximetry (%) Laboratory Last Values WBC 4.7 K/mm3 (4.0-10.0) 06/27/18 07:35 RBC 4.01 M/mm3 (4.00-5.60) 06/27/18 07:35 Hgb 10.5 GM/dL (11.7-16.9) L 06/27/18 07:35 Hct 31.8 % (35.4-49) L 06/27/18 07:35 MCV 79.4 fl (80-96) L 06/27/18 07:35 MCH 26.2 pg (25.7-33.7) 06/27/18 07:35 MCHC 33.0 g/dl (32.0-35.9) 06/27/18 07:35 RDW 15.3 % (11.9-15.9) 06/27/18 07:35 Plt Count 161 K/MM3 (134-434) 06/27/18 07:35 MPV 9.4 fl (7.5-11.1) 06/27/18 07:35 Sodium 143 mmol/L (136-145) 06/27/18 07:35 Potassium 3.7 mmol/L (3.5-5.1) 06/27/18 07:35 Chloride 107 mmol/L (98-107) 06/27/18 07:35 Carbon Dioxide 31 mmol/L (21-32) 06/27/18 07:35 Anion Gap 6 MMOL/L (8-16) L 06/27/18 07:35 BUN 24 mg/dL (7-18) H 06/27/18 07:35 Creatinine 1.1 mg/dL (0.55-1.3) 06/27/18 07:35 Creat Clearance w eGFR > 60 (>60) 06/27/18 07:35 Random Glucose 84 mg/dL (74-106) 06/27/18 07:35 Calcium 7.8 mg/dL (8.5-10.1) L 06/27/18 07:35 Total Bilirubin 0.3 mg/dL (0.2-1) 06/27/18 07:35 AST 20 U/L (15-37) 06/27/18 07:35 ALT 63 U/L (13-61) H 06/27/18 07:35 Alkaline Phosphatase 63 U/L (45-117) 06/27/18 07:35 Total Protein 5.8 g/dl (6.4-8.2) L 06/27/18 07:35 Albumin 2.9 g/dl (3.4-5.0) L 06/27/18 07:35 Urine Color Yellow 06/26/18 14:46 Urine Appearance Turbid 06/26/18 14:46 Urine pH 5.0 (5.0-8.0) 06/26/18 14:46 Ur Specific [place] 1.027 (1.010-1.035) 06/26/18 14:46 Urine Protein 1+ (NEGATIVE) H 06/26/18 14:46 Urine Glucose (UA) Negative (NEGATIVE) 06/26/18 14:46 Urine Ketones Negative (NEGATIVE) 06/26/18 14:46 Urine Blood Negative (NEGATIVE) 06/26/18 14:46 Urine Nitrite Negative (NEGATIVE) 06/26/18 14:46 Urine Bilirubin Negative (<2.0 mg/dL) 06/26/18 14:46 Urine Urobilinogen Negative mg/dL (0.2-1.0) 06/26/18 14:46 Ur Leukocyte Esterase Negative (NEGATIVE) 06/26/18 14:46 Urine WBC (Auto) 64 /hpf (3-5) 06/26/18 14:46 Urine RBC (Auto) 1 /hpf (0-3) 06/26/18 14:46 Urine Bacteria Moderate /hpf (NONE SEEN) 06/26/18 14:46 Urine Mucus Rare 06/26/18 14:46 RPR Titer Nonreactive (NONREACTIVE) 06/27/18 07:35 lab noted low ca++ Assessment: 06/27/18 15:57 withdrawal sx low Ca++ Plan: continue detox oscal supplement
[2018-06-27] MEDS ORDERED: ONDANSETRON *ODT* 4 MG TABLET SL ONE (16:15)
[2018-06-27] MEDS: CALCIUM 250MG/VIT-D 125 UNITS 1 COMBO TABLET PO SCH (22:07)
[2018-06-27] MEDS: THIAMINE HCL 100 MG TABLET (FP) PO SCH (22:07)
[2018-06-28] MEDS: diazePAM 5 MG TABLET PO PRN ×3 (06:13→18:03)
[2018-06-28] MEDS ORDERED: METHADONE HCL 10 MG TABLET PO ONE (09:52)
[2018-06-28] MEDS ORDERED: METHADONE 120 MG, METHADONE 10 MG PO ONE (10:10)
[2018-06-28] MEDS: PRENATAL VITAMINS W/ FOLIC ACID TABLET (FP) PO SCH (10:15)
[2018-06-28] MEDS: NICOTINE 21 MG/24 HOURS TOPICAL PATCH TD SCH (10:15)
[2018-06-28] MEDS: diazePAM 5 MG TABLET PO SCH ×2 (10:16→22:14)
[2018-06-28] MEDS: CALCIUM 250MG/VIT-D 125 UNITS 1 COMBO TABLET PO SCH ×2 (10:16→22:15)
[2018-06-28] MEDS ORDERED: METHADONE HCL 40 MG DISPERSABLE TABLET ONE (10:19)
[2018-06-28] MEDS ORDERED: METHADONE HCL 10 MG TABLET ONE (10:20)
[2018-06-28] MEDS ORDERED: TRIMETHOBENZAMIDE HCL 300 MG CAPSULE PO PRN (11:22)
--- NOTE | 2018-06-28 13:57 | PN ---
S CIWA - CIWA Score Nausea/Vomitin-No Nausea/No Vomiting Muscle Tremors: 3 Anxiety: 4-Mod. Anxious/Guarded Agitation: 0-Normal Activity Paroxysmal Sweats: 3 Orientation: 0-Oriented Tacttile Disturbances: 0-None Auditory Disturbances: 0-None Visual Disturbances: 3-Moderate Sensitivity Headache: 3-Moderate CIWA-Ar Total Score: 16 [facility] Progress Note (SOAP) Subjective: Tremors, Sweating, Interrupted Sleep, H/A, Nausea. Objective: PATIENT A & O X 3, OBSERVED AMBULATING ON UNIT WITH ASSISTANCE OF A CANE. IN NO ACUTE DISTRESS. PATIENT DENIES ANY URINARY COMPLAINTS (BURNING, PAIN, FREQUENCY, URGENCY, HESITANCY). 06/28/18 13:53 Vital Signs Temperature 97.2 F L 06/28/18 13:21 Pulse Rate 81 06/28/18 13:21 Respiratory Rate 18 06/28/18 13:21 Blood Pressure 115/70 06/28/18 13:21 O2 Sat by Pulse Oximetry (%) Laboratory Tests 06/26/18 06/27/18 06/27/18 14:46 07:35 07:35 WBC 4.7 RBC 4.01 Hgb 10.5 L Hct 31.8 L MCV 79.4 L MCH 26.2 MCHC 33.0 RDW 15.3 Plt Count 161 MPV 9.4 Sodium 143 Potassium 3.7 Chloride 107 Carbon Dioxide 31 Anion Gap 6 L BUN 24 H Creatinine 1.1 Creat Clearance w eGFR > 60 Random Glucose 84 Calcium 7.8 L Total Bilirubin 0.3 AST 20 ALT 63 H Alkaline Phosphatase 63 Total Protein 5.8 L Albumin 2.9 L Urine Color Yellow Urine Appearance Turbid Urine pH 5.0 Ur Specific [place] 1.027 Urine Protein 1+ H Urine Glucose (UA) Negative Urine Ketones Negative Urine Blood Negative Urine Nitrite Negative Urine Bilirubin Negative Urine Urobilinogen Negative Ur Leukocyte Esterase Negative Urine WBC (Auto) 64 Urine RBC (Auto) 1 Urine Bacteria Moderate Urine Mucus Rare RPR Titer 06/27/18 07:35 WBC RBC Hgb Hct MCV MCH MCHC RDW Plt Count MPV Sodium Potassium Chloride Carbon Dioxide Anion Gap BUN Creatinine Creat Clearance w eGFR Random Glucose Calcium Total Bilirubin AST ALT Alkaline Phosphatase Total Protein Albumin Urine Color Urine Appearance Urine pH Ur Specific [place] Urine Protein Urine Glucose (UA) Urine Ketones Urine Blood Urine Nitrite Urine Bilirubin Urine Urobilinogen Ur Leukocyte Esterase Urine WBC (Auto) Urine RBC (Auto) Urine Bacteria Urine Mucus RPR Titer Nonreactive LABS NOTED. 06/28/18 16:35 Assessment: 06/28/18 13:54 WITHDRAWAL SYMPTOMS. Plan: CONTINUE DETOX. INCREASE DAILY PO FLUID INTAKE. PRN TIGAN PO FOR NAUSEA. FEOSOL, 325 MG DAILY WITH FOOD FOR MICROCYTIC ANEMIA. REPEAT UA FOR ELEVATED ADMISSION WBC LEVEL.
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
[2018-06-28] MEDS: FERROUS SO4 325 MG TABLET (FP) PO SCH (15:26)
[2018-06-28] MEDS: traZODone HCL 50 MG TABLET (FP) PO SCH (22:13)
[2018-06-28] MEDS: MELATONIN 5 MG TABLETS PO PRN (22:15)
[2018-06-28] MEDS: THIAMINE HCL 100 MG TABLET (FP) PO SCH (22:15)
[2018-06-29] MEDS ORDERED: METHADONE HCL 10 MG TABLET PO ONE (08:35)
[2018-06-29] MEDS ORDERED: METHADONE 120 MG, METHADONE 10 MG PO ONE (09:10)
[2018-06-29] MEDS ORDERED: METHADONE HCL 40 MG DISPERSABLE TABLET ONE (09:14)
[2018-06-29] MEDS ORDERED: METHADONE HCL 10 MG TABLET ONE (09:14)
[2018-06-29] MEDS: FERROUS SO4 325 MG TABLET (FP) PO SCH (10:14)
[2018-06-29] MEDS: NICOTINE 21 MG/24 HOURS TOPICAL PATCH TD SCH (10:14)
[2018-06-29] MEDS: CALCIUM 250MG/VIT-D 125 UNITS 1 COMBO TABLET PO SCH ×2 (10:14→22:04)
[2018-06-29] MEDS: PRENATAL VITAMINS W/ FOLIC ACID TABLET (FP) PO SCH (10:14)
[2018-06-29] MEDS: diazePAM 5 MG TABLET PO SCH ×2 (10:14→22:05)
--- NOTE | 2018-06-29 14:28 | PN ---
[facility] Progress Note (SOAP) Subjective: Body Aches, Stomach Cramping, Poor Appetite, Interrupted Sleep. Objective: PATIENT A & O X 2 (UNCERTAIN ABOUT CURRENT DAY / DATE). PATIENT OBSERVED AMBULATING ON UNIT. IN NO ACUTE DISTRESS. 06/29/18 14:26 Vital Signs Temperature 96 F L 06/29/18 14:19 Pulse Rate 73 06/29/18 14:19 Respiratory Rate 18 06/29/18 14:19 Blood Pressure 117/63 06/29/18 14:19 O2 Sat by Pulse Oximetry (%) Laboratory Tests 06/26/18 06/27/18 06/27/18 14:46 07:35 07:35 WBC 4.7 RBC 4.01 Hgb 10.5 L Hct 31.8 L MCV 79.4 L MCH 26.2 MCHC 33.0 RDW 15.3 Plt Count 161 MPV 9.4 Sodium 143 Potassium 3.7 Chloride 107 Carbon Dioxide 31 Anion Gap 6 L BUN 24 H Creatinine 1.1 Creat Clearance w eGFR > 60 Random Glucose 84 Calcium 7.8 L Total Bilirubin 0.3 AST 20 ALT 63 H Alkaline Phosphatase 63 Total Protein 5.8 L Albumin 2.9 L Urine Color Yellow Urine Appearance Turbid Urine pH 5.0 Ur Specific [place] 1.027 Urine Protein 1+ H Urine Glucose (UA) Negative Urine Ketones Negative Urine Blood Negative Urine Nitrite Negative Urine Bilirubin Negative Urine Urobilinogen Negative Ur Leukocyte Esterase Negative Urine WBC (Auto) 64 Urine RBC (Auto) 1 Urine Bacteria Moderate Urine Mucus Rare RPR Titer 06/27/18 07:35 WBC RBC Hgb Hct MCV MCH MCHC RDW Plt Count MPV Sodium Potassium Chloride Carbon Dioxide Anion Gap BUN Creatinine Creat Clearance w eGFR Random Glucose Calcium Total Bilirubin AST ALT Alkaline Phosphatase Total Protein Albumin Urine Color Urine Appearance Urine pH Ur Specific [place] Urine Protein Urine Glucose (UA) Urine Ketones Urine Blood Urine Nitrite Urine Bilirubin Urine Urobilinogen Ur Leukocyte Esterase Urine WBC (Auto) Urine RBC (Auto) Urine Bacteria Urine Mucus RPR Titer Nonreactive LABS NOTED. RESULTS OF REPEAT UA NOTED. 06/29/18 14:27 Assessment: 06/29/18 14:26 WITHDRAWAL SYMPTOMS. Plan: CONTINUE DETOX. INCREASE DAILY PO FLUID INTAKE.
[2018-06-29] MEDS: IBUPROFEN 400 MG TABLET (FP) PO PRN (17:31)
[2018-06-29] MEDS ORDERED: hydrOXYzine PAMOATE 50 MG CAPSULE (FP) PO PRN (18:17)
[2018-06-29] MEDS: THIAMINE HCL 100 MG TABLET (FP) PO SCH (22:05)
[2018-06-29] MEDS: traZODone HCL 50 MG TABLET (FP) PO SCH (22:05)
[2018-06-29 23:43] LABS: URINE APPEARANCE CLEAR; URINE BILIRUBIN NEGATIVE (<2.0 mg/dL); URINE COLOR LTYELLOW; URINE GLUCOSE (UA) NEGATIVE (NEGATIVE); URINE KETONE NEGATIVE (NEGATIVE); URINE LEUK ESTERASE NEGATIVE (NEGATIVE); URINE NITRITE NEGATIVE (NEGATIVE); URINE PROTEIN NEGATIVE (NEGATIVE); URINE UROBILINOGEN NEGATIVE mg/dL (0.2-1.0)
[2018-06-30] MEDS ORDERED: METHADONE HCL 40 MG DISPERSABLE TABLET ONE (05:22)
[2018-06-30] MEDS ORDERED: METHADONE HCL 10 MG TABLET ONE (05:22)
[2018-06-30] MEDS ORDERED: METHADONE HCL 40 MG DISPERSABLE TABLET PO SCH (06:00)
[2018-06-30] MEDS ORDERED: METHADONE 120 MG, METHADONE 10 MG PO SCH (06:00)
--- NOTE | 2018-06-30 08:33 | DS ---
[facility] Detox Discharge Summary Admission Date: 06/26/18 Discharge Date: 06/30/18 - History Present History: Cocaine Dependence, Opioid Dependence, Sedative Dependence, MMTP - Physical Exam Results Vital Signs: Vital Signs Temperature 98.1 F 06/30/18 06:59 Pulse Rate 70 06/30/18 06:59 Respiratory Rate 18 06/30/18 06:59 Blood Pressure 138/80 06/30/18 06:59 O2 Sat by Pulse Oximetry (%) - Treatment Hospital Course: Detox Protocol Followed, Detoxed Safely, Responded well, Discharged Condition Good, Rehab Referral Accepted - Medication Discharge Medications: Ambulatory Orders NK [No Known Home Medication] 06/26/18 - Diagnosis (1) Sedative, hypnotic or anxiolytic dependence with withdrawal, uncomplicated Current Visit: Yes Status: Chronic (2) Cocaine dependence Current Visit: Yes Status: Chronic Qualifiers: Substance use status: uncomplicated Qualified Code(s): F14.20 - Cocaine dependence, uncomplicated (3) Insomnia Current Visit: Yes Status: Chronic Qualifiers: Insomnia type: unspecified Qualified Code(s): G47.00 - Insomnia, unspecified (4) Nicotine dependence Current Visit: Yes Status: Chronic Qualifiers: Nicotine product type: cigarettes Substance use status: uncomplicated Qualified Code(s): F17.210 - Nicotine dependence, cigarettes, uncomplicated (5) Non-compliant patient Current Visit: Yes Status: Chronic (6) Opioid dependence on agonist therapy Current Visit: Yes Status: Chronic (7) Substance induced mood disorder Current Visit: Yes Status: Chronic (8) PTSD (post-traumatic stress disorder) Current Visit: Yes Status: Suspected (9) Depression Current Visit: No Status: Acute (10) Hypotension Current Visit: No Status: Acute (11) Weight loss Current Visit: No Status: Acute (12) GERD (gastroesophageal reflux disease) Current Visit: Yes Status: Chronic Qualifiers: Esophagitis presence: without esophagitis Qualified Code(s): K21.9 - Gastro -esophageal reflux disease without esophagitis (13) Hepatitis C Current Visit: No Status: Chronic Qualifiers: Viral hepatitis chronicity: carrier Qualified Code(s): B18.2 - Chronic viral hepatitis C (14) Methadone maintenance therapy patient Current Visit: Yes Status: Chronic (15) Seizure disorder Current Visit: No Status: Chronic (16) Use of cane as ambulatory aid Current Visit: No Status: Chronic (17) Positive PPD, treated Current Visit: No Status: Resolved - AMA Did Patient Leave Against Medical Advice: No (referred to [facility] rehab)
[2018-06-30 09:13] VITALS: BP 103/53; PULSE 82; TEMP 96.3
[2018-06-30] MEDS: FERROUS SO4 325 MG TABLET (FP) PO SCH (09:52)
[2018-06-30] MEDS: IBUPROFEN 400 MG TABLET (FP) PO PRN (09:52)
[2018-06-30] MEDS: CALCIUM 250MG/VIT-D 125 UNITS 1 COMBO TABLET PO SCH (09:52)
[2018-06-30] MEDS: PRENATAL VITAMINS W/ FOLIC ACID TABLET (FP) PO SCH (09:52)
[2018-06-30] MEDS: NICOTINE 21 MG/24 HOURS TOPICAL PATCH TD SCH (09:53)
[2018-06-30] MEDS ORDERED: diazePAM 5 MG TABLET PO SCH (10:00)
--- NOTE | 2018-06-30 10:00 | PN ---
S Progress Note Note: pt just indicated to medical provider that he has chronic pain to spinal area d/ t surgery in the past and was being followed by pain management; however pt was d/c and was self medicating for pain with heroin/opiates. Pt was told that if he experiences any pain to his back he will be offered lidocaine patches and/or motin/tylenol prn. Pt agreed with plan. Pt also states that if his pain in unbearable, he will than leave and go to his PCP and start with pain management treatment.
--- NOTE | 2018-06-30 12:45 | EKG ---
Test Reason : Blood Pressure : / mmHG Vent. Rate : 066 BPM Atrial Rate : 066 BPM P-R Int : 186 ms QRS Dur : 088 ms QT Int : 418 ms P-R-T Axes : 072 069 066 degrees QTc Int : 438 ms NORMAL SINUS RHYTHM POSSIBLE LEFT ATRIAL ENLARGEMENT LEFT VENTRICULAR HYPERTROPHY ABNORMAL ECG WHEN COMPARED WITH ECG OF 26-JUN-2017 10:18, NO SIGNIFICANT CHANGE WAS FOUND Confirmed by LISSETH FORTE, ALEJANDRA ([id number]) on 06/30/2018 12:45:27 PM Referred By: Confirmed By:ALEJANDRA MONTANEZ MD
== END 2018-06-30 11:32 | disposition other institution (70) | DRG 773 ==
LOC: YASAS 12:16 → Y6N 14:14
PROVIDERS: ADMIT Neuromusculoskeletal Medicine & OMM; ATTEND Neuromusculoskeletal Medicine & OMM
PROC: HZ2ZZZZ Detoxification Services for Substance Abuse Treatment (ICD-10-PCS; principal; 2018-06-26)
DX: F13.230 Sedative, hypnotic or anxiolytic dependence with withdrawal, uncomplicated (principal); F14.20 Cocaine dependence, uncomplicated; F11.20 Opioid dependence, uncomplicated; F17.210 Nicotine dependence, cigarettes, uncomplicated; F19.24 Other psychoactive substance dependence with psychoactive substance-induced mood disorder; F32.9 Major depressive disorder, single episode, unspecified; F43.10 Post-traumatic stress disorder, unspecified; I95.9 Hypotension, unspecified; G47.00 Insomnia, unspecified; K21.9 Gastro-esophageal reflux disease without esophagitis; R26.89 Other abnormalities of gait and mobility; Z99.89 Dependence on other enabling machines and devices; R63.4 Abnormal weight loss; Z68.22 Body mass index [BMI] 22.0-22.9, adult; Z86.69 Personal history of other diseases of the nervous system and sense organs
CPT/HCPCS: 36415; 71046-TC-FY; 80053; 81003; 81015; 85027; 86593; 93005; 93010; Q0162

== ENCOUNTER 2018-06-30 11:31 | Inpatient (IN) | payer OTHER ==
[2018-06-30 12:18] VITALS: BMI 23.5
--- NOTE | 2018-06-30 14:40 | HP ---
Psychiatrist Admission - Data Date of interview: 06/30/18 Admission source: 6N Identifying data: This is the first [facility] admission for this 62 years old Black male, father of 5 children, unemployed on SSI, homeless Medical History: Significant for hepatitis C antecedent of withdrawal-related seizures, chronic lumbar pain from multiple injuries sustained in combat during two tours of [place] and orthosurgery (fractured right knee from shrapnel in 1972) + back surgery in 2014. Patient ambulates with a cane. Psychiatric History: Patient is an inconsistent historian. Reports that his first psychiatric contact was in 1972 whe he was admitted to a psychiatric hospital in [facility] and diagnosed with PTSD and Schizophrenia. Reports a few subsequent hospitalizations at [facility], [facility] and more recently in 2018 at [facility]. However he saw Dr Tilley recently on 06/28/18 and told him about having one distant history of one psychiatric hospitalization, more than 15 years ago, at [facility] in [facility]. Reportedly diagnosed with PTSD and Bipolar Disorder. Mr Yung indicates past treatment with sertraline, clonazepam and trazodone. told editorial writer he no current OPD care but attended [facility] at [facility] 5-6 months ago. Told editorial writer that he was prescribed Xanax 2 mg po TID and Trazadone(dose unknown). Denies previous suicidal attempt. At present, reports feeling anxiousand sleeping poorly Physical/Sexual Abuse/Trauma History: Denies history of emotional, physical or sexual abuse as well as DV relationhip. Served in the [employer] from [phone]. Saw combat in [facility]. Honorable discharge Additional Comment: Denies criminal history Vital Signs: Vital Signs - 24 hr 06/30/18 11:56 Temperature 97.9 F Pulse Rate 75 Respiratory 18 Rate Blood Pressure 107/56 L Allergies/Adverse Reactions: Allergies Allergy/AdvReac Type Severity Reaction Status Date / Time No Known Drug Allergies Allergy Verified 06/30/18 11:40 Pork/Porcine Containing AdvReac Intermediate Vomiting Verified 06/30/18 11:40 Products pork Allergy Intermediate Vomiting Uncoded 06/30/18 11:40 Date of last physical exam: 06/26/18 Concur with the findings of this exam: Yes - Substance Abuse/Tx History Hx Alcohol Use: No Hx Substance Use: Yes Substance Use Type: Cocaine (Started using cocaine at age 17, consumes half a gram daily. Last used on 06/16/18), Tranquilizers (Started using xanax and klonopin at age 57, consumes6-7 sticks of xanax or 4 pills of klonopin daily. Last used on 06/25/18) Hx Substance Use Treatment: Yes (2 previous inpt detox. First inpt rehab) Mental Status Exam - Mental Status Exam Alert and Oriented to: Place, Person Patient Appearance: Disheveled Mood: Anxious Affect: Appropriate Patient Behavior: Cooperative Speech Pattern: Clear Voice Loudness: Normal Thought Process: Intact, Goal Oriented Thought Disorder: Not Present Hallucinations: Denies Suicidal Ideation: Denies Homicidal Ideation: Denies Insight/Judgement: Fair Sleep: Poorly Appetite: Poor Muscle strength/Tone: Normal Gait/Station: Normal Psychiatric Findings - Problem List ([place] 1, 2,3) (1) PTSD (post-traumatic stress disorder) Current Visit: No Status: Chronic (2) Substance-induced anxiety disorder Current Visit: Yes Status: Acute (3) Substance-induced sleep disorder Current Visit: Yes Status: Acute (4) Sedative hypnotic or anxiolytic dependence Current Visit: Yes Status: Acute (5) Cocaine dependence Current Visit: Yes Status: Acute (6) Opioid dependence on agonist therapy Current Visit: No Status: Chronic (7) Nicotine dependence Current Visit: No Status: Chronic Qualifiers: Nicotine product type: cigarettes Substance use status: uncomplicated Qualified Code(s): F17.210 - Nicotine dependence, cigarettes, uncomplicated (8) GERD (gastroesophageal reflux disease) Current Visit: No Status: Chronic Qualifiers: Esophagitis presence: without esophagitis Qualified Code(s): K21.9 - Gastro -esophageal reflux disease without esophagitis (9) Hepatitis C Current Visit: No Status: Chronic Qualifiers: Viral hepatitis chronicity: carrier Qualified Code(s): B18.2 - Chronic viral hepatitis C Comment: patient agrees to discuss treatment with primary care dr. ocampo - Initial Treatment Plan Initial Treatment Plan: 1) Start Trazadane 100 mg po HS and Vistaril 50 mg po Q 4hrs prn for anxiety. 2) Monitor progress
[2018-06-30] MEDS: hydrOXYzine PAMOATE 50 MG CAPSULE (FP) PO PRN (15:52)
--- NOTE | 2018-06-30 20:44 | HP ---
[facility] Rehab Assess/Revision - Admission History Admitted to Rehab from: [facility] Date of Admission to Rehab: 06/30/2018 - Vital signs Vital Signs: Vital Signs Period Temp Pulse Resp BP Sys/Vergara Pulse Ox Last 24 Hr 97.9 F 75 18 107/56 - Findings Detox History & Physical reviewed: Yes Concur with findings: Yes Comments/Additional Findings: Patient with a history of illicit Xanax and cocaine use disorder. Heroin use disorder, on a methadone maintenance treatment program, with hx heroin relapses. Detoxed from Xanax and stabilized on methadone. Transferred to rehab for cocaine use disorder and stabilization of recent anxiolytic remission. Inpatient Rehab Admission - Initial Determination Are CD services needed?: Yes Free of communicable disease: Yes Not in need of hospitalization: Yes - Rehab Admission Criteria Previous failed treatment: Yes Poor recovery environment: Yes Comorbidities: Yes Lacks judgement: No Patient is meeting Inpatient Rehab admission criteria:: Yes
[2018-06-30] MEDS ORDERED: hydrOXYzine PAMOATE 50 MG CAPSULE (FP) PO PRN (20:46)
[2018-06-30] MEDS ORDERED: MENTHOL/PHENOL 1 EACH UD MM PRN (20:46)
[2018-06-30] MEDS ORDERED: MAGNESIUM HYDROX 2400MG/30ML ORAL SUSPENSION 30 ML CUP PO PRN (20:46)
[2018-06-30] MEDS ORDERED: MAGNESIUM CITRATE 300 ML BOTTLE PO PRN (20:46)
[2018-06-30] MEDS ORDERED: LOPERAMIDE HCL 2 MG CAPSULE PO PRN (20:46)
[2018-06-30] MEDS ORDERED: NICOTINE POLACRILEX 2 MG GUM BUC PRN (20:46)
[2018-06-30] MEDS ORDERED: IBUPROFEN 400 MG TABLET (FP) PO PRN (20:46)
[2018-06-30] MEDS ORDERED: MAG HYDROX/AL HYDROX/SIMETH 30 ML UNIT-DOSE CUP PO PRN (20:46)
[2018-06-30] MEDS: traZODone HCL 100 MG TABLET (FP) PO SCH (21:18)
[2018-06-30] MEDS: THIAMINE HCL 100 MG TABLET (FP) PO SCH (21:18)
[2018-06-30] MEDS: CALCIUM 250MG/VIT-D 125 UNITS 1 COMBO TABLET PO SCH (21:20)
[2018-06-30] MEDS ORDERED: MELATONIN 5 MG TABLETS PO PRN (22:00)
[2018-07-01] MEDS ORDERED: METHADONE HCL 40 MG DISPERSABLE TABLET ONE (05:36)
[2018-07-01] MEDS ORDERED: METHADONE HCL 10 MG TABLET ONE (05:36)
[2018-07-01] MEDS ORDERED: METHADONE HCL 10 MG TABLET PO SCH (06:00)
[2018-07-01] MEDS: METHADONE 120 MG, METHADONE 10 MG PO SCH (06:20)
[2018-07-01] MEDS ORDERED: PATIENT'S OWN MEDICATION (NON-FORMULARY) (Ferrous Sulfate [Feosol] 325 MG) PO SCH (10:00)
[2018-07-01] MEDS: NICOTINE 14 MG/24 HOURS TOPICAL PATCH TD SCH (10:21)
[2018-07-01] MEDS: CALCIUM 250MG/VIT-D 125 UNITS 1 COMBO TABLET PO SCH ×2 (10:21→21:02)
[2018-07-01] MEDS: PRENATAL VITAMINS W/ FOLIC ACID TABLET (FP) PO SCH (10:21)
[2018-07-01] MEDS: FERROUS SO4 325 MG TABLET (FP) PO SCH (10:21)
[2018-07-01] MEDS: ACETAMINOPHEN 325 MG TABLET (FP) PO PRN (10:22)
[2018-07-01] MEDS: traZODone HCL 100 MG TABLET (FP) PO SCH (21:02)
[2018-07-01] MEDS: THIAMINE HCL 100 MG TABLET (FP) PO SCH (21:02)
[2018-07-02] MEDS ORDERED: METHADONE HCL 10 MG TABLET ONE (05:47)
[2018-07-02] MEDS ORDERED: METHADONE HCL 40 MG DISPERSABLE TABLET ONE (05:48)
[2018-07-02] MEDS: METHADONE 120 MG, METHADONE 10 MG PO SCH (06:14)
[2018-07-02] MEDS: CALCIUM 250MG/VIT-D 125 UNITS 1 COMBO TABLET PO SCH ×2 (10:02→21:08)
[2018-07-02] MEDS: PRENATAL VITAMINS W/ FOLIC ACID TABLET (FP) PO SCH (10:02)
[2018-07-02] MEDS: NICOTINE 14 MG/24 HOURS TOPICAL PATCH TD SCH (10:02)
[2018-07-02] MEDS: FERROUS SO4 325 MG TABLET (FP) PO SCH (10:03)
[2018-07-02] MEDS: ACETAMINOPHEN 325 MG TABLET (FP) PO PRN ×2 (12:49→16:49)
[2018-07-02] MEDS: traZODone HCL 100 MG TABLET (FP) PO SCH (21:08)
[2018-07-02] MEDS: THIAMINE HCL 100 MG TABLET (FP) PO SCH (21:08)
[2018-07-03] MEDS ORDERED: METHADONE HCL 40 MG DISPERSABLE TABLET ONE (02:41)
[2018-07-03] MEDS ORDERED: METHADONE HCL 10 MG TABLET ONE (02:41)
[2018-07-03] MEDS: METHADONE 120 MG, METHADONE 10 MG PO SCH (06:31)
[2018-07-03] MEDS: PRENATAL VITAMINS W/ FOLIC ACID TABLET (FP) PO SCH (09:49)
[2018-07-03] MEDS: CALCIUM 250MG/VIT-D 125 UNITS 1 COMBO TABLET PO SCH ×2 (09:49→21:11)
[2018-07-03] MEDS: NICOTINE 14 MG/24 HOURS TOPICAL PATCH TD SCH (09:49)
[2018-07-03] MEDS: FERROUS SO4 325 MG TABLET (FP) PO SCH (09:49)
[2018-07-03] MEDS: P-EPHED 60MG/TRIPROLIDI 2.5MG TABLET PO PRN (16:54)
[2018-07-03] MEDS: traZODone HCL 100 MG TABLET (FP) PO SCH (21:11)
[2018-07-03] MEDS: THIAMINE HCL 100 MG TABLET (FP) PO SCH (21:11)
[2018-07-04] MEDS ORDERED: METHADONE HCL 10 MG TABLET ONE (02:42)
[2018-07-04] MEDS ORDERED: METHADONE HCL 40 MG DISPERSABLE TABLET ONE (02:42)
[2018-07-04] MEDS: METHADONE 120 MG, METHADONE 10 MG PO SCH (06:10)
[2018-07-04] MEDS: PRENATAL VITAMINS W/ FOLIC ACID TABLET (FP) PO SCH (10:14)
[2018-07-04] MEDS: NICOTINE 14 MG/24 HOURS TOPICAL PATCH TD SCH (10:14)
[2018-07-04] MEDS: CALCIUM 250MG/VIT-D 125 UNITS 1 COMBO TABLET PO SCH ×2 (10:15→21:05)
[2018-07-04] MEDS: FERROUS SO4 325 MG TABLET (FP) PO SCH (10:15)
[2018-07-04] MEDS: P-EPHED 60MG/TRIPROLIDI 2.5MG TABLET PO PRN (10:16)
[2018-07-04] MEDS: traZODone HCL 100 MG TABLET (FP) PO SCH (21:05)
[2018-07-04] MEDS: THIAMINE HCL 100 MG TABLET (FP) PO SCH (21:05)
[2018-07-05] MEDS ORDERED: METHADONE HCL 10 MG TABLET ONE (04:27)
[2018-07-05] MEDS ORDERED: METHADONE HCL 40 MG DISPERSABLE TABLET ONE (04:28)
[2018-07-05] MEDS: METHADONE 120 MG, METHADONE 10 MG PO SCH (06:21)
[2018-07-05] MEDS ORDERED: COLLOIDAL OATMEAL 1 BAR EACH TP PRN (09:04)
[2018-07-05] MEDS: NICOTINE 14 MG/24 HOURS TOPICAL PATCH TD SCH (10:18)
[2018-07-05] MEDS: FERROUS SO4 325 MG TABLET (FP) PO SCH (10:19)
[2018-07-05] MEDS: PRENATAL VITAMINS W/ FOLIC ACID TABLET (FP) PO SCH (10:19)
[2018-07-05] MEDS: CALCIUM 250MG/VIT-D 125 UNITS 1 COMBO TABLET PO SCH ×2 (10:19→21:37)
[2018-07-05] MEDS: P-EPHED 60MG/TRIPROLIDI 2.5MG TABLET PO PRN (10:20)
[2018-07-05] MEDS: ACETAMINOPHEN 325 MG TABLET (FP) PO PRN ×2 (13:22→21:38)
--- NOTE | 2018-07-05 16:16 | PN ---
S Progress Note Note: PATIENT SEEN FOR C/O NASAL CONGESTION. PATIENT DENIES COUGH, FEVER AND EARACHE. +POST NASAL DRIP. ACTIFED NOT HELPFUL. WILL D/C ACTIFED AND START FLONASE NS. Vital Signs Temperature 97.8 F 07/05/18 06:50 Pulse Rate 78 07/05/18 06:50 Respiratory Rate 16 07/05/18 06:50 Blood Pressure 129/84 07/05/18 06:50 O2 Sat by Pulse Oximetry (%)
[2018-07-05] MEDS: FLUTICASONE PROP 0.05% 16 GM NASAL SPRAY NS SCH (19:47)
[2018-07-05] MEDS: THIAMINE HCL 100 MG TABLET (FP) PO SCH (21:37)
[2018-07-05] MEDS: traZODone HCL 100 MG TABLET (FP) PO SCH (21:37)
[2018-07-06] MEDS ORDERED: METHADONE HCL 10 MG TABLET ONE (05:04)
[2018-07-06] MEDS ORDERED: METHADONE HCL 40 MG DISPERSABLE TABLET ONE (05:04)
[2018-07-06] MEDS: METHADONE 120 MG, METHADONE 10 MG PO SCH (06:02)
[2018-07-06] MEDS: CALCIUM 250MG/VIT-D 125 UNITS 1 COMBO TABLET PO SCH ×2 (10:16→21:09)
[2018-07-06] MEDS: PRENATAL VITAMINS W/ FOLIC ACID TABLET (FP) PO SCH (10:16)
[2018-07-06] MEDS: NICOTINE 14 MG/24 HOURS TOPICAL PATCH TD SCH (10:16)
[2018-07-06] MEDS: FLUTICASONE PROP 0.05% 16 GM NASAL SPRAY NS SCH (10:16)
[2018-07-06] MEDS: FERROUS SO4 325 MG TABLET (FP) PO SCH (10:16)
[2018-07-06] MEDS: hydrOXYzine PAMOATE 50 MG CAPSULE (FP) PO PRN (10:17)
[2018-07-06] MEDS: THIAMINE HCL 100 MG TABLET (FP) PO SCH (21:09)
[2018-07-06] MEDS: traZODone HCL 100 MG TABLET (FP) PO SCH (21:09)
[2018-07-07] MEDS ORDERED: METHADONE HCL 10 MG TABLET ONE (04:08)
[2018-07-07] MEDS ORDERED: METHADONE HCL 40 MG DISPERSABLE TABLET ONE (04:08)
[2018-07-07] MEDS: METHADONE 120 MG, METHADONE 10 MG PO SCH (06:01)
[2018-07-07] MEDS: NICOTINE 14 MG/24 HOURS TOPICAL PATCH TD SCH (09:58)
[2018-07-07] MEDS: PRENATAL VITAMINS W/ FOLIC ACID TABLET (FP) PO SCH (09:59)
[2018-07-07] MEDS: CALCIUM 250MG/VIT-D 125 UNITS 1 COMBO TABLET PO SCH ×2 (09:59→21:22)
[2018-07-07] MEDS: FERROUS SO4 325 MG TABLET (FP) PO SCH (09:59)
[2018-07-07] MEDS: FLUTICASONE PROP 0.05% 16 GM NASAL SPRAY NS SCH (10:00)
--- NOTE | 2018-07-07 11:32 | PN ---
S Progress Note Note: PATIENT SEEN FOR C/O LOW BACK PAIN. PATIENT HAS H/O BACK INJURY WITH SURGERY IN PAST. PATIENT DENIES ANY RECENT INJURIES AND AMBULATES WITH CANE. EXT NO VISIBLE EDEMA, +ROM. WILL ORDER LIDOCAINE PATCH TO LOWER BACK AREA DAILY AND CONTINUE TO MONITOR CLINICALLY. Vital Signs Temperature 97.8 F 07/07/18 06:43 Pulse Rate 80 07/07/18 06:43 Respiratory Rate 18 07/07/18 06:43 Blood Pressure 153/82 07/07/18 06:43 O2 Sat by Pulse Oximetry (%)
[2018-07-07] MEDS: traZODone HCL 100 MG TABLET (FP) PO SCH (21:22)
[2018-07-07] MEDS: hydrOXYzine PAMOATE 50 MG CAPSULE (FP) PO PRN (21:22)
[2018-07-07] MEDS: THIAMINE HCL 100 MG TABLET (FP) PO SCH (21:22)
[2018-07-07] MEDS: LIDOCAINE PATCH REMOVAL MC SCH (21:23)
[2018-07-08] MEDS ORDERED: METHADONE HCL 10 MG TABLET ONE (02:46)
[2018-07-08] MEDS ORDERED: METHADONE HCL 40 MG DISPERSABLE TABLET ONE (02:46)
[2018-07-08] MEDS: METHADONE 120 MG, METHADONE 10 MG PO SCH (06:05)
[2018-07-08] MEDS ORDERED: PT OWN MED DRAWER 7, Y5N ONE ×2 (08:53→10:09)
[2018-07-08] MEDS: FERROUS SO4 325 MG TABLET (FP) PO SCH (10:06)
[2018-07-08] MEDS: PRENATAL VITAMINS W/ FOLIC ACID TABLET (FP) PO SCH (10:06)
[2018-07-08] MEDS: NICOTINE 14 MG/24 HOURS TOPICAL PATCH TD SCH (10:07)
[2018-07-08] MEDS: LIDOCAINE 5% TOPICAL PATCH TP SCH (10:07)
[2018-07-08] MEDS: CALCIUM 250MG/VIT-D 125 UNITS 1 COMBO TABLET PO SCH ×2 (10:07→21:01)
[2018-07-08] MEDS: ACETAMINOPHEN 325 MG TABLET (FP) PO PRN (10:10)
[2018-07-08] MEDS: FLUTICASONE PROP 0.05% 16 GM NASAL SPRAY NS SCH (10:13)
[2018-07-08] MEDS: traZODone HCL 100 MG TABLET (FP) PO SCH (21:01)
[2018-07-08] MEDS: THIAMINE HCL 100 MG TABLET (FP) PO SCH (21:01)
[2018-07-08] MEDS: hydrOXYzine PAMOATE 50 MG CAPSULE (FP) PO PRN (21:01)
[2018-07-08] MEDS: LIDOCAINE PATCH REMOVAL MC SCH (21:02)
[2018-07-09] MEDS ORDERED: METHADONE HCL 10 MG TABLET ONE (04:13)
[2018-07-09] MEDS ORDERED: METHADONE HCL 40 MG DISPERSABLE TABLET ONE (04:14)
[2018-07-09] MEDS: METHADONE 120 MG, METHADONE 10 MG PO SCH (06:07)
[2018-07-09] MEDS: CALCIUM 250MG/VIT-D 125 UNITS 1 COMBO TABLET PO SCH ×2 (10:08→21:15)
[2018-07-09] MEDS: PRENATAL VITAMINS W/ FOLIC ACID TABLET (FP) PO SCH (10:08)
[2018-07-09] MEDS: FLUTICASONE PROP 0.05% 16 GM NASAL SPRAY NS SCH (10:08)
[2018-07-09] MEDS: hydrOXYzine PAMOATE 50 MG CAPSULE (FP) PO PRN ×2 (10:09→21:15)
[2018-07-09] MEDS: FERROUS SO4 325 MG TABLET (FP) PO SCH (10:09)
[2018-07-09] MEDS: LIDOCAINE 5% TOPICAL PATCH TP SCH (10:09)
[2018-07-09] MEDS: NICOTINE 14 MG/24 HOURS TOPICAL PATCH TD SCH (10:09)
[2018-07-09] MEDS: ACETAMINOPHEN 325 MG TABLET (FP) PO PRN (17:03)
[2018-07-09] MEDS: traZODone HCL 100 MG TABLET (FP) PO SCH (21:15)
[2018-07-09] MEDS: THIAMINE HCL 100 MG TABLET (FP) PO SCH (21:15)
[2018-07-09] MEDS: LIDOCAINE PATCH REMOVAL MC SCH (21:16)
[2018-07-10] MEDS ORDERED: METHADONE HCL 10 MG TABLET ONE (04:09)
[2018-07-10] MEDS ORDERED: METHADONE HCL 40 MG DISPERSABLE TABLET ONE (04:09)
[2018-07-10] MEDS: METHADONE 120 MG, METHADONE 10 MG PO SCH (06:05)
[2018-07-10] MEDS: FERROUS SO4 325 MG TABLET (FP) PO SCH (09:46)
[2018-07-10] MEDS: LIDOCAINE 5% TOPICAL PATCH TP SCH (09:46)
[2018-07-10] MEDS: CALCIUM 250MG/VIT-D 125 UNITS 1 COMBO TABLET PO SCH ×2 (09:46→21:05)
[2018-07-10] MEDS: PRENATAL VITAMINS W/ FOLIC ACID TABLET (FP) PO SCH (09:46)
[2018-07-10] MEDS: FLUTICASONE PROP 0.05% 16 GM NASAL SPRAY NS SCH (09:47)
[2018-07-10] MEDS: NICOTINE 14 MG/24 HOURS TOPICAL PATCH TD SCH (09:47)
[2018-07-10] MEDS: hydrOXYzine PAMOATE 50 MG CAPSULE (FP) PO PRN ×2 (09:48→21:05)
[2018-07-10] MEDS: LIDOCAINE PATCH REMOVAL MC SCH (21:05)
[2018-07-10] MEDS: THIAMINE HCL 100 MG TABLET (FP) PO SCH (21:05)
[2018-07-10] MEDS: traZODone HCL 100 MG TABLET (FP) PO SCH (21:05)
[2018-07-11] MEDS ORDERED: METHADONE HCL 40 MG DISPERSABLE TABLET ONE (03:51)
[2018-07-11] MEDS ORDERED: METHADONE HCL 10 MG TABLET ONE (03:51)
[2018-07-11] MEDS: METHADONE 120 MG, METHADONE 10 MG PO SCH (06:04)
[2018-07-11] MEDS: LIDOCAINE 5% TOPICAL PATCH TP SCH (09:29)
[2018-07-11] MEDS: PRENATAL VITAMINS W/ FOLIC ACID TABLET (FP) PO SCH (09:29)
[2018-07-11] MEDS: NICOTINE 14 MG/24 HOURS TOPICAL PATCH TD SCH (09:29)
[2018-07-11] MEDS: FERROUS SO4 325 MG TABLET (FP) PO SCH (09:29)
[2018-07-11] MEDS: CALCIUM 250MG/VIT-D 125 UNITS 1 COMBO TABLET PO SCH ×2 (09:29→21:10)
[2018-07-11] MEDS: FLUTICASONE PROP 0.05% 16 GM NASAL SPRAY NS SCH (09:30)
[2018-07-11] MEDS: hydrOXYzine PAMOATE 50 MG CAPSULE (FP) PO PRN (21:10)
[2018-07-11] MEDS: traZODone HCL 100 MG TABLET (FP) PO SCH (21:10)
[2018-07-11] MEDS: THIAMINE HCL 100 MG TABLET (FP) PO SCH (21:10)
[2018-07-11] MEDS: LIDOCAINE PATCH REMOVAL MC SCH (21:11)
[2018-07-12] MEDS ORDERED: METHADONE HCL 40 MG DISPERSABLE TABLET ONE (02:36)
[2018-07-12] MEDS ORDERED: METHADONE HCL 10 MG TABLET ONE (02:36)
[2018-07-12] MEDS: METHADONE 120 MG, METHADONE 10 MG PO SCH (06:08)
[2018-07-12 07:07] VITALS: BP 149/90; PULSE 79; TEMP 97.9
--- NOTE | 2018-07-12 09:12 | PN ---
[facility] Progress Note Note: PATIENT FOR DISCHARGE TODAY. PATIENT IS MEDICALLY STABLE AND DENIES SI/HI. PATIENT REPORTS ACHIEVING ALL REHAB GOALS AND TO FOLLOW UP WITH [facility] FOR ONGOING SUBSTANCE ABUSE TREATMENT. PATIENT ENCOURAGED TO ATTEND GROUP MEETINGS TO PREVENT RELAPSE AND TO FOLLOW UP WITH PCP WITHIN ONE WEEK OF DISCHARGE. Vital Signs Temperature 97.9 F 07/12/18 07:06 Pulse Rate 79 07/12/18 07:06 Respiratory Rate 18 07/12/18 07:06 Blood Pressure 149/90 07/12/18 07:06 O2 Sat by Pulse Oximetry (%)
[2018-07-12] MEDS: PRENATAL VITAMINS W/ FOLIC ACID TABLET (FP) PO SCH (09:50)
[2018-07-12] MEDS: FERROUS SO4 325 MG TABLET (FP) PO SCH (09:50)
[2018-07-12] MEDS: CALCIUM 250MG/VIT-D 125 UNITS 1 COMBO TABLET PO SCH (09:50)
[2018-07-12] MEDS: FLUTICASONE PROP 0.05% 16 GM NASAL SPRAY NS SCH (09:50)
[2018-07-12] MEDS: NICOTINE 14 MG/24 HOURS TOPICAL PATCH TD SCH (09:52)
[2018-07-12] MEDS: LIDOCAINE 5% TOPICAL PATCH TP SCH (09:52)
== END 2018-07-12 10:08 | disposition home or self-care (01) | DRG 772 ==
LOC: YASAS 11:31 → Y3W 11:32
PROVIDERS: ADMIT Psychiatry & Neurology Psychiatry; ATTEND Psychiatry & Neurology Psychiatry
PROC: HZ42ZZZ Group Counseling for Substance Abuse Treatment, Cognitive-Behavioral (ICD-10-PCS; principal; 2018-06-30)
DX: F13.20 Sedative, hypnotic or anxiolytic dependence, uncomplicated (principal); F11.20 Opioid dependence, uncomplicated; F14.20 Cocaine dependence, uncomplicated; F17.210 Nicotine dependence, cigarettes, uncomplicated; F19.280 Other psychoactive substance dependence with psychoactive substance-induced anxiety disorder; F19.282 Other psychoactive substance dependence with psychoactive substance-induced sleep disorder; F43.10 Post-traumatic stress disorder, unspecified; K21.9 Gastro-esophageal reflux disease without esophagitis; B18.2 Chronic viral hepatitis C; Z86.69 Personal history of other diseases of the nervous system and sense organs